=== PATIENT | female | born 1990 | race Caucasian/White ===

== ENCOUNTER → 2020-11-09 07:49 | Outpatient (CLI) | payer OTHER, SELFPAY ==
--- NOTE | ~2020-11-09 | XR_ITS ---
XR chest 2V DATE: 11/09/2020 08:37 INDICATION: Chest pain TECHNIQUE: PA and lateral views COMPARISON: None FINDINGS: Normal heart size. No hilar or mediastinal enlargement. No pulmonary infiltrate or consolid ation, pleural effusion or pulmonary vascular congestion or pneumothorax. IMPRESSION: Negative Reviewed, dictated and finalized at location A. IMPRESSION: Negative
== END ==
PROVIDERS: PCP Emergency Medicine; Visit Provider Emergency Medicine
DX: R07.89 Other chest pain (principal)
CPT/HCPCS: 71046

== ENCOUNTER 2020-11-15 14:28 | Outpatient (CLI) | payer OTHER, SELFPAY ==
--- NOTE | 2020-11-15 | ECHO_ITS ---
Patient Info Name: Niya Hooper Age: 30 years : 1990 Gender: Female Ht: 61 in Wt: 140 lbs BSA: 1.67 m2 HR: 62 bpm BP: 134 / 73 mmHg Heart Rhythm: Sinus Rhythm Technical Quality: Good Exam Date: 11/15/2020 3:13 PM Exam Location: [facility] Patient Status: Outpatient Admit Date: 11/15/2020 Staff Ordering Physician: Zachariah Ordonez MD Vocational Guidance Counselor: Yuliya Goss RDCS Attending Provider: Zachariah Ordonez MD Referring Physician: José Luis GUY; Exam Type: CA echo doppler color flow Study Info Indications - MURMUR Complete two-dimensional, color flow and Doppler transthoracic echocardiogram is performed. Summary 1. Complete two-dimensional, color flow and Doppler transthoracic echocardiogram is performed. 2. Left ventricular chamber dimension is normal. 3. Left ventricular systolic function is normal, estimated at 55-60%. 4. There is no increased left ventricular wall thickness. 5. The left ventricular diastolic function is normal. 6. There is mild mitral valve regurgitation. 7. There is mild tricuspid valve regurgitation. 8. There is mild pulmonic regurgitation. Left Ventricle Left ventricular chamber dimension is normal. Left ventricular systolic function is normal, estimated at 55-60%. There is no increased left ventricular wall thickness. The left ventricular diastolic function is normal. Right Ventricle Right ventricular chamber dimension is normal. Right ventricular systolic function is normal. Left Atria Left atrial chamber dimension is normal. Right Atria Right atrial chamber dimension is normal. Atrial Septum Intact interatrial septum visualized by color flow imaging. Aortic Valve The aortic valve is trileaflet. There is mild aortic valve sclerosis. There is no aortic valve stenosis. There is trace aortic valve regurgitation. Pulmonic Valve The pulmonic valve is normal. There is no pulmonic valve stenosis. There is mild pulmonic regurgitation. Mitral Valve The mitral valve has normal leaflets. There is no mitral valve stenosis. There is mild mitral valve regurgitation. Tricuspid Valve The tricuspid valve leaflets are normal. There is no significant tricuspid valve stenosis. There is mild tricuspid valve regurgitation. No pulmonary hypertension, estimated pulmonary arterial systolic pressure is 29 mmHg. Pericardium/Pleural The pericardium appears normal. There is no pericardial effusion. Inferior Vena Cava Normal inferior vena cava with >50% collapse upon inspiration consistent with normal right atrial pressure, 10 mmHg. Aorta The aortic root size at the sinus of Valsalva is normal. The prox ascending aorta size is normal. Left Ventricular Outflow Tract Name Value Normal LVOT 2D LVOT Diameter 2.0 cm LVOT Doppler LVOT Peak Gradient 6 mmHg LVOT Mean Gradient 4 mmHg LVOT VTI 26 cm LVOT VTI/AV VTI Ratio 0.8 LVOT Stroke Volume 80 ml LVOT CO 16.7 l
== END 2020-11-15 14:29 | disposition home or self-care (01) ==
LOC: ANHCARD 14:30
PROVIDERS: PCP Emergency Medicine; Visit Provider Emergency Medicine
DX: R01.1 Cardiac murmur, unspecified (principal); I34.0 Nonrheumatic mitral (valve) insufficiency; I36.1 Nonrheumatic tricuspid (valve) insufficiency; I37.1 Nonrheumatic pulmonary valve insufficiency
CPT/HCPCS: 93306

== ENCOUNTER 2021-03-01 02:41 | Emergency (ER) | payer OTHER, SELFPAY ==
[2021-03-01 02:46] VITALS: BP 156/106; PULSE 74; RESP 18; TEMP 36.6; O2SAT 99
--- NOTE | 2021-03-01 02:52 | ED.WOUNDLAC ---
HPI - Wound/Laceration General Chief Complaint: Wound/Laceration Stated Complaint: fell, laceration to head Time Seen by Provider: 03/01/21 02:52 History of Present Illness HPI narrative: healthy 30 yo female presnets to the ED for a laceration. She reports that she fell forward and struck her head. She suffered a laceration to the left forehead. No LOC. Pain is minimal. No other pain or injury. Related Data Allergies Allergy/AdvReac Type Severity Reaction Status Date / Time No Known Allergies Allergy Verified 03/01/21 03:10 Review of Systems Constitutional: Constitutional: Denies weakness Eyes: Eyes: Reports no additional eye complaints ENT: Denies dizziness Cardiovascular: Cardiovascular: Denies chest pain Respiratory: Respiratory: Denies dyspnea Gastrointestinal: Gastrointestinal: Denies nausea Neurologic: Denies confusion, Denies dizziness, Denies headache(s) and Denies weakness [facility] Social History Social History Smoking status: Never smoker Exam Const: General: healthy appearing, no acute distress and alert Orientation/consciousness: patient oriented x3 HENMT: Head: laceration (forehead, 4 cm) Eyes: Pupils: Equal, round and reactive pupils present EOM: EOMs intact bilaterally Resp: Effort & Inspection: normal respiratory effort Skin: General skin exam: normal color Neuro: General: patient oriented x3 and moves all extremities Speech: normal speech Psych: Appearance: grossly normal and well kempt Mental Status: mental status grossly normal Affect: normal affect Course Vital Signs Vital signs: Vital Signs Temperature 36.6 C 03/01/21 02:46 Pulse Rate 74 03/01/21 02:46 Respiratory Rate 18 03/01/21 02:46 Blood Pressure 156/106 H 03/01/21 02:46 Pulse Oximetry 99 03/01/21 02:46 Temperature 36.6 C 03/01/21 02:46 Pulse Rate 74 03/01/21 02:46 Respiratory Rate 18 03/01/21 02:46 Blood Pressure 156/106 H 03/01/21 02:46 Pulse Oximetry 99 03/01/21 02:46 Procedures Laceration Laceration 1: Date: 03/01/21 Time: 03:45 Site: face Size (cm): 4 Description: linear Depth: simple, single layer Local Anesthetic: lidocaine 1% and with epi Amount of anesthesia used (mL): 3 Pre-repair: wound explored and irrigated ====== Skin Level ====== Skin layer closed with: other (Fast Gut) Size (cm): 5-0 Number of sutures: 7 Technique: simple, interrupted ====== Subcutaneous Layer ====== ====== Muscle Layer ====== ====== Tendon Layer ====== MDM - Wound/Laceration Differential Diagnosis Differential diagnosis: Likely laceration Discharge Plan Discharge Clinical Impression: Forehead laceration Qualifiers: Encounter type: initial encounter Qualified Code(s): S01.81XA - Laceration without foreign body of other part of head, initial encounter Patient Disposition: Home, Self-Care Condition: Stable Instructions: Laceration (ED), Care For Your Absorbable Stitches (ED) Follow-up/Referrals: Zachariah Ordonez MD [Primary Care Provider] -
[2021-03-01 04:11] VITALS: BP 137/87; PULSE 68; RESP 20; O2SAT 100
== END 2021-03-01 04:12 | disposition home or self-care (01) ==
LOC: ANHED 04:00
PROVIDERS: Emergency Provider Emergency Medicine; PCP Emergency Medicine
DX: S01.81XA Laceration without foreign body of other part of head, initial encounter (principal); W19.XXXA Unspecified fall, initial encounter
CPT/HCPCS: 12013; 99282

== ENCOUNTER → 2022-12-17 11:20 | Outpatient (CLI) | payer OTHER, SELFPAY ==
--- NOTE | ~2022-12-17 | US_ITS ---
EXAMINATION: US OB <= 14 weeks fetus DATE: 12/17/2022 11:38 INDICATION: Uncertain dating of a first trimester TECHNIQUE: Real-time pelvic ultrasound utilizing transabdominal probe was performed. The susie lopez radiologist was not present for the study. COMPARISON: None. FINDINGS: The uterus measures 9.6 x 5.1 x 5.1 cm. There is an intrauterine gestational sac. A 5 mm yolk sac an d pole are identified. The crown rump length measures 8 mm, which correlates with an estimated gestational age of 6 weeks and 5 days. heart motion is identified measuring 147 beats per minut e (bpm) by M-mode Doppler. The right ovary measures 2.9 x 2.7 x 2.2 cm. The left ovary measures 2.5 x 2.3 x 2.0 cm. There is no free fluid in the pelvis. IMPRESSION: 1. Single living fetus with heart rate of 147 bpm. 2. Gestational age by ultrasound of 6 weeks 5 day(s) +/- 4 day(s) with ultrasound estimated date of delivery (ASHWIN) of 08/07/2023. Reviewed, dictated and finalized at location B. IMPRESSION: 1. Single living fetus with heart rate of 147 bpm. 2. Gestational age by ultrasound of 6 weeks 5 day(s) +/- 4 day(s) with ultraso und estimated date of delivery (ASHWIN) of 08/07/2023.
== END ==
PROVIDERS: PCP Obstetrics & Gynecology Gynecology; Visit Provider Obstetrics & Gynecology Gynecology
DX: Z36.87 Encounter for antenatal screening for uncertain dates (principal); Z3A.01 Less than 8 weeks gestation of pregnancy
CPT/HCPCS: 76801

== ENCOUNTER → 2023-03-07 09:39 | Outpatient (CLI) | payer OTHER, SELFPAY ==
--- NOTE | ~2023-03-07 | US_ITS ---
EXAMINATION: US OB /maternal detail DATE: 03/07/2023 10:31 INDICATION: survey TECHNIQUE: Multiple obstetric sonographic images performed. FINDINGS: Ultrasound dated 12/17/2022 There is a single living fetus in vertex presentation. The placenta is posterior without placenta pr evia. Placental margin is 5 cm to the cervix. Amniotic fluid volume is normal. cardiac activity and movement is noted with a heart rate of 141 beats per minute. The following anatomy was identified as normal: 4 chamber heart 3 vessel cord cord insertion kidneys urinary bladder stomach spine diaphragm ventricles cisterna magna cerebellum The following biometric data were obtained: BPD: 44mm corresponds to gestational age 19 weeks 1 days. Head circumference: 159 mm corresponds to gestational age 18 weeks 5 days. Abdominal circumference: 131 mm corresponds to gestational age 18 weeks 5 days. Femur length: 26 mm corresponds to gestational age 17 weeks 6 days. Head circumference to abdominal circumference ratio: 1.21 (normal range for expected gestational age is 1.09-1.27). Estimated weight: 235 grams +/- 35 grams using Hadlock method, 57%. IMPRESSION: 1: Single living intrauterine with an estimated gestational age of 18weeks 1days by initial ultrasound measurements, with an EDC of 08/07/2023 in vertex presentation. 2. Normal survey. Reviewed, dictated and finalized at location A. IMPRESSION: 1: Single living intrauterine with an estimated gestational age of 18 weeks 1days by initial ultrasound measurements, with an EDC of 08/07/2023 in ve rtex presentation. 2. Normal survey.
== END ==
PROVIDERS: PCP Obstetrics & Gynecology Gynecology; Visit Provider Obstetrics & Gynecology Gynecology
DX: Z36.9 Encounter for antenatal screening, unspecified (principal); Z3A.18 18 weeks gestation of pregnancy
CPT/HCPCS: 76805

== ENCOUNTER → 2023-05-29 11:24 | Outpatient (CLI) | payer OTHER, SELFPAY ==
--- NOTE | ~2023-05-29 | US_ITS ---
EXAMINATION: US OB follow up DATE: 05/29/2023 11:49 INDICATION: Size less than dates during third trimester TECHNIQUE: Real-time ultrasound of the pelvis was performed. The interpreting radiologist was not pre sent for the study. COMPARISON: None. FINDINGS: There is a single living fetus in vertex presentation. The placenta is fundal/posterior. Fe baljit cardiac activity and movement are noted. heart rate is 133 beats per minute (bpm). Th e amniotic fluid index is 13.8 cm which is normal (normal range: 9 cm to 23.4 cm). The following biometric data were obtained: Biparietal diameter (BPD): 7.7 cm; head circumference (HC): 27.8 cm; abdominal circumference (AC): 26 .2 cm; femur length (FL): 5.5 cm. These measurements are concordant. Estimated weight is 1482 g +/- 222 g, which correlates with the 35th percentile when 08/07/2023 is used as estimated date of delivery. As single measurements, these parameters are each equal to the following estimated gestational ages w ith ranges of +/- 2 standard deviations: BPD: 30 weeks 6 days ( 27 weeks 6 days - 34 weeks 0 days). HC: 30 weeks 3 days ( 27 weeks 3 days - 33 weeks 3 days). AC: 30 weeks 2 days ( 27 weeks 3 days - 33 weeks 2 days). FL: 29 weeks 0 days ( 26 weeks 6 days - 31 weeks 0 days). estimated gestational age based solely on measurements from this exam is 30 weeks 1 days +/- 2 weeks 1 days. IMPRESSION: 1. Single living fetus in vertex presentation. 2. Estimated weight is 1482 g +/- 222 g, which correlates with the 35th percentile when 023 is used as estimated date of delivery. 3. Normal amniotic fluid index. Reviewed, dictated and finalized at location B. IMPRESSION: 1. Single living fetus in vertex presentation. 2. Estimated weight is 1482 g +/- 222 g, which correlates with the 35th p ercentile when 08/07/2023 is used as estimated date of delivery. 3. Normal amniotic fluid index.
== END ==
PROVIDERS: PCP Advanced Practice Midwife; Visit Provider Advanced Practice Midwife
DX: O36.5930 Maternal care for other known or suspected poor fetal growth, third trimester, not applicable or unspecified (principal)
CPT/HCPCS: 76816

== ENCOUNTER 2023-06-03 15:53 | Outpatient (CLI) | payer OTHER, SELFPAY ==
[2023-06-03] VITALS (10 sets, daily range): BP systolic 130–144; BP diastolic 63–81; PULSE 65–78
[2023-06-03 16:39] LABS: Basophils Percent Auto 0.2 % (0.2-1.2); Eosinophils Absolute Auto 0.1 K/mm3 (0-0.3); Hematocrit 34.6 % (37.0-47.0); Hemoglobin 11.2 g/dL (12.0-15.0); Immature Granulocyte Absolute 0.18 K/mm3 (0.00-0.031); Immature Granulocyte Percent A 1.3 % (0-0.5); Lymphocytes Absolute Auto 1.92 K/mm3 (0.9-3.2); Lymphocytes Percent Auto 14.4 % (18.3-44.2); Mean Corpuscular HGB Conc 32.4 g/dl (32-36); Mean Corpuscular Hemoglobin 28.1 pg (26-34); Mean Corpuscular Volume 86.7 fl (80-100); Mean Platelet Volume 10.7 fl (7.4-10.4); Monocytes Absolute Auto 0.8 K/mm3 (0.1-0.6); Monocytes Percent Auto 6.2 % (2.6-8.5); Neutrophils Absolute Auto 10.3 K/mm3 (1.3-6.7); Neutrophils Percent Auto 76.9 % (45.5-73.1); Platelet Count Result 265 k/mm3 (150-375); Red Blood Count 3.99 M/mm3 (4.2-5.4); White Blood Count 13.4 K/mm3 (4.5-10.0)
[2023-06-03 16:40] LABS: Bacteria Urine 1+ /hpf; RBC Urine 0-2 /hpf (0-2); Squamous Epithelial Cell Urine Occasional /hpf (Few); WBC Urine 21-50 /hpf (0-3)
[2023-06-03 16:45] LABS: Alanine Aminotransferase 15 U/L (6-35); Albumin Level 3.9 g/dL (3.5-5.1); Alkaline Phosphatase 89 U/L (38-126); Anion Gap 7 mmol/L (8-16); Aspartate Amino Transferase 21 U/L (14-36); Bilirubin,Total 0.4 mg/dL (0.2-1.3); Blood Urea Nitrogen 8 mg/dL (7-17); Calcium 9.4 mg/dL (8.4-10.2); Carbon Dioxide 23 mmol/L (22-30); Chloride 104 mmol/L (98-107); Estimated Glomerular Filt Rate > 60; Glucose 86 mg/dL (65-110); Potassium 3.8 mmol/L (3.4-5.0); Sodium 134 mmol/L (137-145); Uric Acid 3.4 mg/dL (2.5-7.5)
[2023-06-03 16:47] LABS: Appearance Urine Clear (Clear); Bilirubin Urine Negative (Negative); Blood Urine Negative (Negative); Color Urine Yellow (Yellow); Glucose Urine UA Negative (Negative); Ketones Urine 1+ mg/dL (Negative); Leukocyte Esterase Ur 2+ LEU/UL (NEGATIVE); Nitrate Urine Negative (Negative); Protein Urine Negative (Negative); Specific Grav Ur 1.015 (1.001-1.035); Urobilinogen Urine 0.2 mg/dL (<2.0)
[2023-06-03 16:48] LABS: Add Urine Microscopic? YES
[2023-06-03 17:59] LABS: Creatinine Urine 34.2 mg/dL; Total Protein Urine Random 18 mg/dL; Ur Ttl Prot Creatinine Ratio 0.53 mg/mg (0-0.20)
== END 2023-06-03 18:04 | disposition home or self-care (01) ==
LOC: ANHOBOP 15:58 → ANHOBPP 16:00
PROVIDERS: PCP Advanced Practice Midwife; Visit Provider Obstetrics & Gynecology Gynecology
DX: O13.9 Gestational [pregnancy-induced] hypertension without significant proteinuria, unspecified trimester (principal)
CPT/HCPCS: 36415; 59025; 80053; 81001; 81050; 82570; 84156; 84550; 85025; 87086; 99199

== ENCOUNTER 2023-06-04 18:04 | Outpatient (CLI) | payer OTHER, SELFPAY ==
[2023-06-04 18:21] VITALS: BMI 30.4
[2023-06-04 20:11] LABS: Total Volume 24 Hour Urine 2900 ml
[2023-06-04 20:18] LABS: Specific Gravity Ur 1.015; Total Volume 24 Hour Urine 2900 ml
[2023-06-04 20:23] LABS: Total Protein Urine 24 Hr 464 mg/24hr (28-141); Total Protein Urine Random 16 mg/dL
[2023-06-04 20:24] LABS: Creatinine 24 Hour Urine 1.4 gm/24 (0.8-1.8); Creatinine Urine 49.7 mg/dL
== END 2023-06-04 18:05 | disposition home or self-care (01) ==
LOC: ANHOBOP 18:16
PROVIDERS: PCP Advanced Practice Midwife; Visit Provider Obstetrics & Gynecology Gynecology
DX: Z34.90 Encounter for supervision of normal pregnancy, unspecified, unspecified trimester (principal); Z3A.00 Weeks of gestation of pregnancy not specified
CPT/HCPCS: 81050; 82570; 84156

== ENCOUNTER 2023-06-11 10:31 | Outpatient (RCR) | payer OTHER, SELFPAY ==
[2023-06-11 11:09] VITALS: BP 127/74; PULSE 76
== END 2023-09-09 23:59 | disposition home or self-care (01) ==
LOC: ANHOBOP 10:31
PROVIDERS: PCP Emergency Medicine; Visit Provider Obstetrics & Gynecology Gynecology
DX: O16.3 Unspecified maternal hypertension, third trimester (principal); Z3A.31 31 weeks gestation of pregnancy
CPT/HCPCS: 59025

== ENCOUNTER 2023-06-15 16:25 | Outpatient (CLI) | payer OTHER, SELFPAY ==
[2023-06-15 17:23] LABS: Basophils Percent Auto 0.2 % (0.2-1.2); Eosinophils Absolute Auto 0.1 K/mm3 (0-0.3); Eosinophils Percent Auto 0.9 % (0-4.4); Hematocrit 35.9 % (37.0-47.0); Hemoglobin 11.3 g/dL (12.0-15.0); Immature Granulocyte Absolute 0.11 K/mm3 (0.00-0.031); Immature Granulocyte Percent A 0.8 % (0-0.5); Lymphocytes Absolute Auto 1.97 K/mm3 (0.9-3.2); Lymphocytes Percent Auto 14.7 % (18.3-44.2); Mean Corpuscular HGB Conc 31.5 g/dl (32-36); Mean Corpuscular Hemoglobin 27.9 pg (26-34); Mean Corpuscular Volume 88.6 fl (80-100); Monocytes Absolute Auto 0.8 K/mm3 (0.1-0.6); Monocytes Percent Auto 6.3 % (2.6-8.5); Neutrophils Absolute Auto 10.3 K/mm3 (1.3-6.7); Neutrophils Percent Auto 77.1 % (45.5-73.1); Platelet Count Result 244 k/mm3 (150-375); Red Blood Count 4.05 M/mm3 (4.2-5.4); Red Cell Distribution Width 12.9 % (11.5-14.5); White Blood Count 13.4 K/mm3 (4.5-10.0)
[2023-06-15 17:27] LABS: Appearance Urine Cloudy (Clear); Bacteria Urine None Seen /hpf; Bilirubin Urine Negative (Negative); Blood Urine Negative (Negative); Color Urine Yellow (Yellow); Glucose Urine UA Negative (Negative); Ketones Urine Negative (Negative); Leukocyte Esterase Ur Negative LEU/UL (NEGATIVE); Nitrate Urine Negative (Negative); Non Pathogenic Casts 0-2; Protein Urine Negative (Negative); RBC Urine 0-2 /hpf (0-2); Specific Grav Ur 1.017 (1.001-1.035); Squamous Epithelial Cell Urine None seen /hpf (Few); Urobilinogen Urine 0.2 mg/dL (<2.0); WBC Urine 0-5 /hpf (0-3); pH Urine 7.5 (5.0-9.0)
[2023-06-15 17:33] LABS: Alanine Aminotransferase 14 U/L (6-35); Albumin Level 3.6 g/dL (3.5-5.1); Alkaline Phosphatase 94 U/L (38-126); Anion Gap 7 mmol/L (8-16); Aspartate Amino Transferase 19 U/L (14-36); Bilirubin,Total 0.3 mg/dL (0.2-1.3); Blood Urea Nitrogen 8 mg/dL (7-17); Calcium 8.8 mg/dL (8.4-10.2); Carbon Dioxide 18 mmol/L (22-30); Chloride 108 mmol/L (98-107); Estimated Glomerular Filt Rate > 60; Glucose 89 mg/dL (65-110); Potassium 3.8 mmol/L (3.4-5.0); Sodium 133 mmol/L (137-145)
[2023-06-15 17:46] LABS: Add Urine Microscopic? YES
[2023-06-15 18:10] VITALS: BP 134/80; PULSE 82
[2023-06-15 19:04] LABS: Creatinine Urine 75.1 mg/dL; Total Protein Urine Random 10 mg/dL; Ur Ttl Prot Creatinine Ratio 0.13 mg/mg (0-0.20)
--- NOTE | 2023-06-15 19:15 | PC.NURSE ---
Dr. France notified of pt status, instructed to send pt home, instructed to tell pt she does not need to return for NST tomorrow since she got one today.
== END 2023-06-15 19:28 | disposition home or self-care (01) ==
PROVIDERS: Visit Provider Obstetrics & Gynecology Gynecology
DX: O13.9 Gestational [pregnancy-induced] hypertension without significant proteinuria, unspecified trimester (principal); Z3A.00 Weeks of gestation of pregnancy not specified
CPT/HCPCS: 36415; 59025; 80053; 81001; 82570; 84156; 84550; 85025; 87086; 87088

== ENCOUNTER → 2023-06-17 10:17 | Outpatient (CLI) | payer OTHER, SELFPAY ==
--- NOTE | ~2023-06-17 | US_ITS ---
EXAMINATION: US OB follow up, US umbilical doppler DATE: 06/17/2023 11:18 INDICATION: Preeclampsia TECHNIQUE: Real-time ultrasound of the pelvis was performed. The interpreting radiologist was not pre sent for the study. COMPARISON: None. FINDINGS: There is a single living fetus in vertex presentation. The placenta is posterior fundal. heart rate is 145 beats per minute (bpm). The amniotic fluid index is 12.9 cm, which is normal. The following biometric data were obtained: BPD: 8.1 cm -> 32 weeks 2 days Head circumference: 29.0 cm -> 32 weeks 0 days Abdominal circumference: 28.7 cm -> 32 weeks 5 days Femur length: 5.8 cm -> 30 weeks 4 days These measurements are concordant. Head circumference to abdominal circumference ratio: 1.01 (normal range 0.96-1.14). Estimated weight: 1872 g (+/-) 281 g or 4 lbs. 2 oz. (+/-) 10 oz. The umbilical artery demonstrates a peak systolic and diastolic velocity ratio of 2.9 at the fetus, 2 .4 in the mid cord and 2.4 near the placenta (5th%-95%: 2.2-3.8 at 32 weeks). IMPRESSION: 1. Single living fetus in vertex presentation with heart rate of 145 bpm. 2. Normal amniotic fluid index of 12.9 cm 3. Estimated weight is 20th percentile by Hadlock criteria when 08/07/2023 is used as the estim ated date of delivery (ASHWIN). Please correlate with clinical information or earlier ultrasounds for mo st accurate ASHWIN. 4. Normal umbilical arterial systolic to diastolic ratios of 2.4-2.9. Reviewed, dictated and finalized at location A. IMPRESSION: 1. Single living fetus in vertex presentation with heart rate of 145 bpm. 2. Normal amniotic fluid index of 12.9 cm 3. Estimated weight is 20th percentile by Hadlock criteria when 3 is used as the estimated date of delivery (ASHWIN). Please correlate with clinic al information or earlier ultrasounds for most accurate ASHWIN. 4. Normal umbilical arterial systolic to diastolic ratios of 2.4-2.9.
== END ==
PROVIDERS: PCP Advanced Practice Midwife; Visit Provider Advanced Practice Midwife
DX: O14.03 Mild to moderate pre-eclampsia, third trimester (principal); Z3A.00 Weeks of gestation of pregnancy not specified
CPT/HCPCS: 76816; 76820

== ENCOUNTER 2023-06-29 12:10 | Outpatient (CLI) | payer OTHER, SELFPAY ==
[2023-06-29] VITALS (10 sets, daily range): BP systolic 128–145; BP diastolic 63–92; PULSE 66–90
--- NOTE | ~2023-06-29 | US_ITS ---
EXAMINATION: 1. US OB follow up 2. US umbilical doppler DATE: 06/29/2023 14:49 INDICATION: Preeclampsia. Third trimester. TECHNIQUE: Real-time ultrasound of the pelvis was performed. COMPARISON: Ultrasound 06/17/2023 FINDINGS: There is a single living fetus in vertex presentation. The placenta is fundal and posterior. h eart rate is 128 beats per minute (bpm). The amniotic fluid index is 12.2 cm, which is normal. The following biometric data were obtained: Biparietal diameter (BPD): 8.4 cm; head circumference (HC): 30.3 cm; abdominal circumference (AC): 30 .5 cm; femur length (FL): 6.4 cm. These measurements are concordant. Estimated weight is 2314 g +/- 347 g, which correlates with the 31st percentile when 08/07/23 i s used as estimated date of delivery. As single measurements, these parameters are each equal to the following estimated gestational ages: BPD: 33 weeks 6 days. HC: 33 weeks 4 days. AC: 34 weeks 3 days. FL: 33 weeks 1 days. estimated gestational age based solely on measurements from this exam is 33 weeks 5 days +/- 2 weeks 3 days. Umbilical artery pulsed Doppler demonstrates a peak systolic to end-diastolic velocity ratio (S/D rat io) of 2.4 (5th percentile = 2.07, 95th percentile = 3.53). IMPRESSION: 1. Single living fetus in vertex presentation. 2. Estimated weight is 2314 g +/- 347 g, which correlates with the 31st percentile when is used as estimated date of delivery. 3. Normal umbilical artery Doppler. Reviewed, dictated and finalized at location A. WORKER IMPRESSION: 1. Single living fetus in vertex presentation. 2. Estimated weight is 2314 g +/- 347 g, which correlates with the 31st percentile when 08/07/23 is used as estimated date of delivery. 3. Normal umbilical artery Doppler.
[2023-06-29 12:49] LABS: Basophils Percent Auto 0.2 % (0.2-1.2); Eosinophils Absolute Auto 0.1 K/mm3 (0-0.3); Eosinophils Percent Auto 0.5 % (0-4.4); Hematocrit 37.1 % (37.0-47.0); Hemoglobin 11.7 g/dL (12.0-15.0); Immature Granulocyte Absolute 0.09 K/mm3 (0.00-0.031); Immature Granulocyte Percent A 0.8 % (0-0.5); Lymphocytes Percent Auto 11.1 % (18.3-44.2); Mean Corpuscular HGB Conc 31.5 g/dl (32-36); Mean Corpuscular Hemoglobin 27.9 pg (26-34); Mean Corpuscular Volume 88.3 fl (80-100); Mean Platelet Volume 11.1 fl (7.4-10.4); Monocytes Absolute Auto 0.6 K/mm3 (0.1-0.6); Monocytes Percent Auto 4.8 % (2.6-8.5); Neutrophils Absolute Auto 9.7 K/mm3 (1.3-6.7); Neutrophils Percent Auto 82.6 % (45.5-73.1); Platelet Count Result 233 k/mm3 (150-375); Red Cell Distribution Width 13.3 % (11.5-14.5); White Blood Count 11.7 K/mm3 (4.5-10.0)
[2023-06-29 13:00] LABS: Alanine Aminotransferase 15 U/L (6-35); Albumin Level 3.8 g/dL (3.5-5.1); Alkaline Phosphatase 105 U/L (38-126); Anion Gap 12 mmol/L (8-16); Aspartate Amino Transferase 19 U/L (14-36); Bilirubin,Total 0.4 mg/dL (0.2-1.3); Blood Urea Nitrogen 10 mg/dL (7-17); Calcium 9.8 mg/dL (8.4-10.2); Carbon Dioxide 22 mmol/L (22-30); Chloride 101 mmol/L (98-107); Estimated Glomerular Filt Rate > 60; Glucose 118 mg/dL (65-110); Potassium 4.1 mmol/L (3.4-5.0); Sodium 135 mmol/L (137-145); Uric Acid 4.2 mg/dL (2.5-7.5)
--- NOTE | 2023-06-29 15:10 | PC.NURSE ---
1510: MATHIEU Garcia responded to page. RN informed her of patient's lab results, blood pressures, ultrasound report, reactive NST, and rare contraction. Orders to discharge patient home with instructions on when to return to the hospital.
== END 2023-06-29 15:23 | disposition home or self-care (01) ==
LOC: ANHOBOP 12:17 → ANHOBPP 12:18
PROVIDERS: Visit Provider Advanced Practice Midwife
DX: O13.9 Gestational [pregnancy-induced] hypertension without significant proteinuria, unspecified trimester (principal); Z3A.00 Weeks of gestation of pregnancy not specified
CPT/HCPCS: 36415; 59025; 76816; 76820; 80053; 84550; 85025; 99199

== ENCOUNTER 2023-07-13 13:05 | Inpatient (IN) | payer OTHER, SELFPAY ==
[2023-07-13] VITALS (49 sets, daily range): BP systolic 133–170; BP diastolic 63–103; PULSE 64–99; TEMP 36.3–36.4; O2SAT 94–97; BMI 30.7
[2023-07-13 14:05] LABS: Basophils Percent Auto 0.2 % (0.2-1.2); Eosinophils Absolute Auto 0.1 K/mm3 (0-0.3); Eosinophils Percent Auto 0.4 % (0-4.4); Hematocrit 33.9 % (37.0-47.0); Hemoglobin 11.1 g/dL (12.0-15.0); Immature Granulocyte Absolute 0.07 K/mm3 (0.00-0.031); Immature Granulocyte Percent A 0.6 % (0-0.5); Lymphocytes Absolute Auto 1.51 K/mm3 (0.9-3.2); Lymphocytes Percent Auto 12.5 % (18.3-44.2); Mean Corpuscular HGB Conc 32.7 g/dl (32-36); Mean Corpuscular Hemoglobin 28.6 pg (26-34); Mean Corpuscular Volume 87.4 fl (80-100); Mean Platelet Volume 11.1 fl (7.4-10.4); Monocytes Absolute Auto 0.6 K/mm3 (0.1-0.6); Monocytes Percent Auto 4.5 % (2.6-8.5); Neutrophils Absolute Auto 9.9 K/mm3 (1.3-6.7); Neutrophils Percent Auto 81.8 % (45.5-73.1); Platelet Count Result 264 k/mm3 (150-375); Red Blood Count 3.88 M/mm3 (4.2-5.4); Red Cell Distribution Width 13.5 % (11.5-14.5); White Blood Count 12.1 K/mm3 (4.5-10.0)
[2023-07-13 14:18] LABS: Alanine Aminotransferase 13 U/L (6-35); Albumin Level 3.4 g/dL (3.5-5.1); Alkaline Phosphatase 120 U/L (38-126); Anion Gap 6 mmol/L (8-16); Aspartate Amino Transferase 19 U/L (14-36); Bilirubin,Total 0.4 mg/dL (0.2-1.3); Blood Urea Nitrogen 8 mg/dL (7-17); Calcium 9.3 mg/dL (8.4-10.2); Carbon Dioxide 23 mmol/L (22-30); Chloride 104 mmol/L (98-107); Estimated Glomerular Filt Rate > 60; Glucose 95 mg/dL (65-110); Potassium 4.1 mmol/L (3.4-5.0); Sodium 133 mmol/L (137-145); Uric Acid 4.5 mg/dL (2.5-7.5)
[2023-07-13] MEDS: BETAMETHASONE SOD PHOS/ACETATE 30 MG/5 ML VIAL 12 MG IM (14:20)
[2023-07-13] MEDS: LACTATED RINGERS 1,000 ML 125 ML IV CONT ×2 (14:25→22:25)
[2023-07-13] MEDS: OXYTOCIN 30 UNITS/NS 500 ML 30 UNITS/500 ML BAG IV CONT (14:26)
[2023-07-13 14:54] LABS: Rapid Plasma Reagin Non-Reactive (NonReactive)
--- NOTE | 2023-07-13 16:44 | WPDANESEPP ---
Anes - Eval Pre Procedure Procedure: Labor epidural Date/Time: 07/13/23 16:44 Pre Op Diagnosis: Induction of Labor Patient Data Age: 33 Gender: F Height: 1.56 m Weight: 75 kg Last Vital Signs Pulse 78 07/13/23 16:31 BP 147/83 H 07/13/23 16:31 O2 Del Method Room Air 07/13/23 14:16 Allergies Allergy/AdvReac Type Severity Reaction Status Date / Time No Known Allergies Allergy Verified 03/01/21 03:10 Home Medications Medication Instructions Recorded Confirmed Type aspirin 162 mg tablet,delayed 162 mg PO DAILY 07/13/23 07/13/23 History release ergocalciferol (vitamin D2) 1,250 50,000 unit WEEKLY 07/13/23 07/13/23 History mcg (50,000 unit) capsule vit no.95-ferrous 1 tablet PO DAILY 07/13/23 07/13/23 History fumarate 28 mg-folic acid 800 mcg tablet () Laboratory Tests 07/13/23 13:54 WBC 12.1 H K/mm3 (4.5-10.0) RBC 3.88 L M/mm3 (4.2-5.4) Hgb 11.1 L g/dL (12.0-15.0) Hct 33.9 L % (37.0-47.0) MCV 87.4 fl (80-100) MCH 28.6 pg (26-34) MCHC 32.7 g/dl (32-36) RDW 13.5 % (11.5-14.5) Plt Count 264 k/mm3 (150-375) MPV 11.1 H fl (7.4-10.4) Immature Gran % (Auto) 0.6 H % (0-0.5) Neut % (Auto) 81.8 H % (45.5-73.1) Lymph % (Auto) 12.5 L % (18.3-44.2) [place] % (Auto) 4.5 % (2.6-8.5) Eos % (Auto) 0.4 % (0-4.4) Baso % (Auto) 0.2 % (0.2-1.2) Lymph # (Auto) 1.51 K/mm3 (0.9-3.2) [place] # (Auto) 0.6 K/mm3 (0.1-0.6) Eos # (Auto) 0.1 K/mm3 (0-0.3) Baso # (Auto) 0.0 K/mm3 (0.0-0.1) Abs Immat Gran (auto) 0.07 H K/mm3 (0.00-0.031) Absolute Neuts (auto) 9.9 H K/mm3 (1.3-6.7) Absolute Nucleated RBC 0.0 K/mm3 (0.0-0.012) Nucleated RBC % 0.0 % (0.0-0.2) Sodium 133 L mmol/L (137-145) Potassium 4.1 mmol/L (3.4-5.0) Chloride 104 mmol/L (98-107) Carbon Dioxide 23 mmol/L (22-30) Anion Gap 6 L mmol/L (8-16) BUN 8 mg/dL (7-17) Creatinine 0.50 L mg/dL (0.7-1.0) Estim Creat Clear Calc Not Reportable Estimated GFR > 60 (59 - ) Glucose 95 mg/dL (65-110) Uric Acid 4.5 mg/dL (2.5-7.5) Calcium 9.3 mg/dL (8.4-10.2) Total Bilirubin 0.4 mg/dL (0.2-1.3) AST 19 U/L (14-36) ALT 13 U/L (6-35) Alkaline Phosphatase 120 U/L (38-126) Total Protein 6.0 L g/dL (6.3-8.2) Albumin 3.4 L g/dL (3.5-5.1) RPR Non-reactive (NonReactive) Blood Type A Positive Antibody Screen Negative Patient hx anesthesia problems: none Family hx anesthesia problems: none Results Review: All pre-operative results and documents have been reviewed as part of the pre-operative evaluation. REPLACED BY [facility] Past Medical History Medical History (Updated 07/13/23 @ 16:45 by Shannon Garcia CRNA) Anxiety Obese Pre-eclampsia during in third trimester, antepartum Family History Family History Grandparent Cancer Brain tumor Other No pertinent family history Social History Social History Smoking status: Current some day smoker Tobacco type: cigarettes Second hand tobacco smoke exposure: Yes Substance use: never Lack of Transportation: No Lack of Food: Never True Current Housing: I Have Housing Concerned About Future Housing: No Difficulty Paying Gas/Electric Bills: No Difficulty Paying for Meds: No Currently Unemployed: No Education: Trade/Vocational Certificate Difficulty w/ Childcare or Family Care: No Spiritual care concerns: No Exam Day of Procedure 07/13/23 16:44 Patient weight: obese Heart: regular rate and rhythm Lungs: clear to auscultation Airway: Mallampati scale Neurological: alert and oriented
--- NOTE | 2023-07-13 17:10 | WPDOBADMIT ---
Obstetrics - Admit Note Admission Note: record reviewed. No pertinent additions to the history and/or any subsequent changes in the physical findings that are not consistent with the expected course of the were found. Additions to the history and/or subsequent changes in the physical findings follow. Severe range blood pressures > 4 hours apart.
--- NOTE | 2023-07-13 18:40 | PM.OBPNLAB ---
Pain Control Date/time seen: 07/13/23 18:40 Pain control: tolerating well Pelvic Exam Dilation (cm): 2 (2.5 cm) Effacement (%): 80 station: -2 Amniotic membrane status: Intact Comments: head very well applied to cervix. Contractions Monitor mode: External Contraction frequency: 2 (2-3) Contraction duration: 60 Contraction pattern: Regular Contraction phase: Resting Contraction intensity: Moderate Status status: Category l Assessment and Plan Pitocin rate (mU/min): 8 Assessment: induction ongoing Plan: continuous present management Comments: CNM to bedside. Discussed plan of care an option for amniotomy. Discussed risks, benefits, and expectations of breaking water. Patient is agreeable. Amniotomy performed and there was a small return of clear amniotic fluid. Patient tolerated procedure well. Plan to titrate pitocin as needed to achieve adequate contraction pattern. Anticipate vaginal . Dr. France updated.
[2023-07-13] MEDS: CALCIUM CARBONATE (TUMS) 500 MG (200 MG ELEMENTAL) PO (22:49)
[2023-07-14] VITALS (54 sets, daily range): BP systolic 110–161; BP diastolic 60–108; PULSE 57–113; RESP 16–20; TEMP 36.6–36.9; O2SAT 95–100
[2023-07-14] MEDS: OXYTOCIN 30 UNITS/NS 500 ML 30 UNITS/500 ML BAG 125 UNITS IV CONT (01:00)
--- NOTE | 2023-07-14 01:01 | PM.OBPRVD ---
OB - Vaginal Delivery Note Procedure Delivery date: 07/14/23 Events: Preeclampsia w severe features (BP) Induction method: Per Pitocin Protocol Delivery augmentation: Rupture of Membranes Delivery monitor: External FHT and External Uterine Route of delivery: Episiotomy description: None Laceration Description: Vaginal (1st degree vaginal to left labial. ) Delivery repair: vicryl Specimen: Yes (placenta) Quantitative Blood Loss (ml): 75 Anesthesia type: Epidural Disposition: Floor Complications: No immediate complications Narrative: Pt arrived for IOL 2/2 preeclampsia with severe range BPs (x2) over the weekend. Pitocin was started and amniotomy performed. She progressed quickly to complete dilation. CNM to bedside and patient pushed very well with contractions. She quickly brought the head to a crown. With the next push she delivered the remainder of the head. A loose nuchal cord was identified. With the next expulsive effort the anterior and posterior shoulders were delivered followed by the remainder of the infant. The was delivered close to the perineum in the somersault maneuver. The nuchal cord was reduced and the was placed on the maternal abdomen and dried and cement of the cord was doubly clamped and cut. Cord blood, cord gases, and cord segment were obtained. Placenta delivered spontaneously. A first-degree vaginal and left labial continuous laceration repaired in usual fashion. There was excellent uterine tone and hemostasis. All delivery counts correct. Mother and baby skin to skin in the delivery room. [place] Baby Date of : 07/14/23 Time of : 00:29 Weeks of gestation at delivery: 36 gender: Female Weight (pounds): 0 (unavailable at this time.) presentation: vertex position: Right Occiput Anterior Placenta delivery description: Spontaneous and Normal Configuration Cord Vessel Description: 3 Vessels, Nuchal Cord and Delayed Cord Clamping score one minute: 9 score five minutes: 9
--- NOTE | 2023-07-14 01:14 | PM.OBDSVD ---
DS: Admitting Diagnosis Discharge Date 07/17/2023 Admitting Diagnosis 33 y.o. 36 weeks 3 days Preeclampsia with severe features IOL Anxiety ETOH use in first trimester Nicotine use in DS: Discharge Diagnosis Discharge Diagnosis (1) (normal spontaneous vaginal delivery): Code(s): O80 - Encounter for full-term uncomplicated delivery Status: Acute (2) Preeclampsia: Code(s): O14.90 - Unspecified pre-eclampsia, unspecified trimester Status: Acute OB - DS: Summary Hospital Course Hospital Course: Uncomplicated OB Procedures : NST, PIH Mgmt and Ultrasound OB Procedures Intrapartum: Spontaneous Vag Delivery OB Procedures: : None Peripartum Data Delivery Method: Natural Vaginal Laceration Description: Vaginal (1st degree vaginal to left labial. ) Episiotomy description: None complications: none Status at Discharge Functional status at discharge: independent ambulation Overall status at discharge: patient is progressing back to baseline Time Spent with Patient Time attestation: Total time spent providing and/or coordinating discharge services: DS: Data Data Completed and Pending Labs on day of discharge: Labs from last 24 hours 07/13/23 13:54 WBC 12.1 H RBC 3.88 L Hgb 11.1 L Hct 33.9 L MCV 87.4 MCH 28.6 MCHC 32.7 RDW 13.5 Plt Count 264 MPV 11.1 H Immature Gran % (Auto) 0.6 H Neut % (Auto) 81.8 H Lymph % (Auto) 12.5 L [place] % (Auto) 4.5 Eos % (Auto) 0.4 Baso % (Auto) 0.2 Lymph # (Auto) 1.51 [place] # (Auto) 0.6 Eos # (Auto) 0.1 Baso # (Auto) 0.0 Abs Immat Gran (auto) 0.07 H Absolute Neuts (auto) 9.9 H Absolute Nucleated RBC 0.0 Nucleated RBC % 0.0 Sodium 133 L Potassium 4.1 Chloride 104 Carbon Dioxide 23 Anion Gap 6 L BUN 8 Creatinine 0.50 L Estim Creat Clear Calc Not Reportable Estimated GFR > 60 Glucose 95 Uric Acid 4.5 Calcium 9.3 Total Bilirubin 0.4 AST 19 ALT 13 Alkaline Phosphatase 120 Total Protein 6.0 L Albumin 3.4 L RPR Non-reactive Blood Type A Positive Antibody Screen Negative Discharge Plan Discharge Attending physician on discharge: Maribel France Consulting providers: Trupti Salcedo; Shannon Garcia Discharging Clinician: Trupti Salcedo Patient Disposition: Home, Self-Care Activity: may shower Diet: as tolerated and regular Discharge Instructions: Continue taking your vitamin and any other supplements as previously directed (Examples: Iron, Vitamin D). You may take Tylenol 1000mg over the counter every 6 hours as needed for pain. Do not exceed 4000mg of Tylenol daily. You may continue using tucks pads and dermoplast spray if needed for a few more days. . Depression Notify provider for signs or symptoms. These may include- Feelings: Feeling anxious, angry, hopeless, guilt, or loss of interest/pleasure in activities you normally enjoy. Mood swings or panic attacks. General: Extreme fatigue, loss of your appetite, feeling restless. Crying excessively, irritability, insomnia Psychological: Lack of concentration, depression or fear, unwanted thoughts Weight: Significant gain or loss Safety: Thoughts of harming yourself or your baby. Blood Pressure Instructions Check your BP at home daily. Keep a log and bring to your next visit. Report any BP readings over 160/110 to provider immediately. (Please call if either number is elevated) Headache that does not improve with 2 Extra Strength Tylenol (you may take Ibuprofen if not ) Visual changes such as blurred vision or flashes of light Pain under the right breast Significant increase in swelling with any of the above symptoms *make sure you are sitting for at least 5 minutes before taking BP. Keep legs uncrossed and avoid talkin
--- NOTE | 2023-07-14 03:26 | OBPPTRN ---
Patient transferred to post room #292 via wheelchair. Support person present. Oriented to unit, room, information board, rooming in, admission packet and security measures. Patient verbalizes understanding.
[2023-07-14] MEDS: MULTIVIT/MIN/PREN/FOL AC/IRON TABLET 1 TAB PO (08:43)
[2023-07-14] MEDS: ERGOCALCIFEROL 50,000 UNITS CAPSULE 50000 UNITS BY MOUTH (08:43)
[2023-07-14] MEDS: IBUPROFEN 600 MG TABLET PO ×2 (08:44→15:52)
[2023-07-14] MEDS: DOCUSATE SODIUM 100 MG CAPSULE PO (15:53)
[2023-07-14] MEDS: LABETALOL HCL 100 MG TABLET PO (20:24)
[2023-07-15] VITALS (8 sets, daily range): BP systolic 138–157; BP diastolic 61–91; PULSE 62–84; RESP 16–20; TEMP 36.5–36.9; O2SAT 96–99
[2023-07-15 05:09] LABS: Hematocrit 31.2 % (37.0-47.0); Hemoglobin 9.7 g/dL (12.0-15.0)
--- NOTE | 2023-07-15 07:01 | P.PNOB_ITS ---
OB - PN: Subj Subjective Date/time seen: 07/15/23 07:01 Interval history: Had some severe BPs overnight. Dr. France was contacted and Labetalol was started. Doing well. Urinating without difficulty. Denies passing any large clots. Denies dizziness with ambulating. Tolerating po food and fluids. Bonding with infant. Denies MEJIA, visual changes, RUQ pain. Patient comments: pain well controlled baby status: doing well and bottle feeding well feeding status: exclusively bottle feeding OB - PN: Obj Data Labs 07/15/23 04:11 07/13/23 13:54 Labs: Laboratory Results - last 24 hr 07/15/23 04:11 Hgb 9.7 L Hct 31.2 L OB - PN A/P Plan day: 1 Plan: routine care Time Spent With Patient Time: Total time spent is greater than 50% in coordination of care (as documented) at patient's floor/unit and/or counseling patient: Review of Systems Review of Systems: All systems reviewed & are unremarkable except as noted in HPI and below Exam Narrative: Alert and oriented. Mood is pleasant and cooperative. Perineum with minimal edema. Fundus firm and below umbilicus. Const: General: cooperative, healthy appearing, no acute distress and alert Orientation/consciousness: patient oriented x3 Limitations: no limitations Resp: Effort & Inspection: normal respiratory effort and able to speak in complete sentences Auscultation: clear to auscultation bilaterally Cardio: Rate: regular rate GI: Inspection: normal to inspection Auscultation: normal bowel sounds : General: Yes bladder normal to palpation Bimanual exam- vagina & ut erus: bladder normal to palpation OB/external & speculum: vaginal bleeding Other: Fundus firm and below U Skin: General skin exam: normal color and no rashes or lesions noted Neuro: General: patient oriented x3 and moves all extremities Cognition (Neuro): normal cognition Extrem: General: normal to inspection and no calf tenderness Right lower extremity: edema Details: pitting and 1+ Left lower extremity: edema Details: pitting and 1+ Psych: Appearance: grossly normal Mental Status: mental status grossly normal Affect: normal affect Thought process: Normal thought process present
[2023-07-15] MEDS: POLYSACCHARIDE IRON COMPLEX 150 MG CAPSULE PO ×2 (08:45→19:50)
[2023-07-15] MEDS: LABETALOL HCL 100 MG TABLET PO ×2 (08:45→19:52)
[2023-07-15] MEDS: IBUPROFEN 600 MG TABLET PO ×2 (08:46→19:51)
[2023-07-15] MEDS: MULTIVIT/MIN/PREN/FOL AC/IRON TABLET 1 TAB PO (08:46)
[2023-07-15] MEDS: DOCUSATE SODIUM 100 MG CAPSULE PO ×2 (08:46→19:51)
--- NOTE | 2023-07-16 08:13 | P.PNOB_ITS ---
OB - PN: Subj Subjective Date/time seen: 07/16/23 08:00 Interval history: Reports RUQ pain overnight- constant, achy. Difficult to lay on that side . MEJIA last night but not at this time. No visual changes. Urinating without difficulty. Denies passing any large clots. Denies dizziness with ambulating. Tolerating po food and fluids. Bonding with . Patient comments: other [place] baby status: bottle feeding well [place] feeding status: exclusively bottle feeding OB - PN: Obj Data Labs 07/15/23 04:11 07/13/23 13:54 OB - PN A/P Assessment and Plan (1) RUQ pain: Code(s): R10.11 - Right upper quadrant pain Status: Acute Assessment and Plan: plan STAT CBC, CMP (2) Preeclampsia: Qualifiers: Trimester: third trimester Qualified Code(s): O14.93 - Unspecified pre- eclampsia, third trimester Code(s): O14.90 - Unspecified pre-eclampsia, unspecified trimester Status: Acute Assessment and Plan: BP normal to mild range on meds. Plan day: 2 Plan: other Comments: If labs WNL, will plan DC home today. Baby not DC due to weight loss. Time Spent With Patient Time: Total time spent is greater than 50% in coordination of care (as documented) at patient's floor/unit and/or counseling patient: Review of Systems Review of Systems: All systems reviewed & are unremarkable except as noted in HPI and below Exam Narrative: Alert and oriented. Mood is pleasant and cooperative. Perineum with minimal edema. Fundus firm and below umbilicus. Const: General: cooperative, healthy appearing, no acute distress and alert Orientation/consciousness: patient oriented x3 Limitations: no limitations Resp: Effort & Inspection: normal respiratory effort and able to speak in c omplete sentences Auscultation: clear to auscultation bilaterally Cardio: Rate: regular rate GI: Inspection: normal to inspection GI Palp: Yes Tenderness to palpation present (GI) (RUQ) Auscultation: normal bowel sounds : General: Yes bladder normal to palpation Bimanual exam- vagina & uterus: bladder normal to palpation OB/external & speculum: vaginal bleeding Other: Fundus firm and below U Skin: General skin exam: normal color and no rashes or lesions noted Neuro: General: patient oriented x3 and moves all extremities Cognition (Neuro): normal cognition Deep tendon reflexes (DTR's): Right brachioradialis reflex intensity grade: 1+, Left brachioradialis reflex intensity grade: 1+, Right patellar reflex intensity grade: 1+ and Left patellar reflex intensity grade: 1+ Extrem: General: normal to inspection and no calf tenderness Psych: Appearance: grossly normal Mental Status: mental status grossly normal Affect: normal affect Thought process: Normal thought process present
[2023-07-16 08:50] VITALS: BP 155/92; PULSE 58; RESP 18; TEMP 36.9; O2SAT 97
[2023-07-16 08:56] LABS: Hematocrit 32.6 % (37.0-47.0); Hemoglobin 10.2 g/dL (12.0-15.0); Mean Corpuscular HGB Conc 31.3 g/dl (32-36); Mean Corpuscular Hemoglobin 28.6 pg (26-34); Mean Corpuscular Volume 91.3 fl (80-100); Mean Platelet Volume 10.8 fl (7.4-10.4); Platelet Count Result 211 k/mm3 (150-375); Red Blood Count 3.57 M/mm3 (4.2-5.4); Red Cell Distribution Width 13.8 % (11.5-14.5); White Blood Count 11.1 K/mm3 (4.5-10.0)
[2023-07-16 09:06] LABS: Alanine Aminotransferase 46 U/L (6-35); Albumin Level 3.3 g/dL (3.5-5.1); Alkaline Phosphatase 100 U/L (38-126); Anion Gap 7 mmol/L (8-16); Aspartate Amino Transferase 51 U/L (14-36); Bilirubin,Total 0.4 mg/dL (0.2-1.3); Blood Urea Nitrogen 13 mg/dL (7-17); Calcium 8.7 mg/dL (8.4-10.2); Carbon Dioxide 27 mmol/L (22-30); Chloride 103 mmol/L (98-107); Estimated CRCL calculation 124 ml/min; Estimated Glomerular Filt Rate > 60; Glucose 81 mg/dL (65-110); Potassium 4.1 mmol/L (3.4-5.0); Sodium 137 mmol/L (137-145)
[2023-07-16] MEDS: POLYSACCHARIDE IRON COMPLEX 150 MG CAPSULE PO ×2 (09:31→16:35)
[2023-07-16] MEDS: MULTIVIT/MIN/PREN/FOL AC/IRON TABLET 1 TAB PO (09:31)
[2023-07-16 09:32] VITALS: PULSE 77
[2023-07-16] MEDS: LABETALOL HCL 100 MG TABLET PO ×2 (09:32→20:38)
--- NOTE | 2023-07-16 09:48 | PM.OBPNVD ---
OB - PN: Subj Subjective Date/time seen: 07/16/23 09:42 Interval history: OB - PN: Obj Data Labs 07/16/23 08:47 07/16/23 08:47 Labs: Laboratory Results - last 24 hr 07/16/23 08:47 WBC 11.1 H RBC 3.57 L Hgb 10.2 L Hct 32.6 L MCV 91.3 MCH 28.6 MCHC 31.3 L RDW 13.8 Plt Count 211 MPV 10.8 H Sodium 137 Potassium 4.1 Chloride 103 Carbon Dioxide 27 Anion Gap 7 L BUN 13 D Creatinine 0.50 L Estim Creat Clear Calc 124 Estimated GFR > 60 Glucose 81 Calcium 8.7 Total Bilirubin 0.4 AST 51 H ALT 46 H Alkaline Phosphatase 100 Total Protein 6.0 L Albumin 3.3 L OB - PN A/P Plan day: 2 Plan: routine care Comments: Discussed lab findings and CNM assessment with Dr. France. Plan to keep pt overnight for BP monitoring and repeat labs in the am. Time Spent With Patient Time: Total time spent is greater than 50% in coordination of care (as documented) at patient's floor/unit and/or counseling patient:
[2023-07-16] MEDS: IBUPROFEN 600 MG TABLET PO ×3 (10:57→23:03)
[2023-07-16 12:48] VITALS: BP 156/86; PULSE 72; RESP 18; TEMP 36.4; O2SAT 97
--- NOTE | 2023-07-16 13:04 | PCCCNOTE ---
Care Coordination. Pt. referred to CC for having positive UDS for alcohol once during first trimester. No UDS obtained here for mother or infant. Pt. reports she had a glass of wine. She denies daily or heavy substance use. She reports did discuss with her doctor at this time that she was having some depression. Pt. reports they waited to start medications to see how pt. did and she reports after first trimester, she started feeling better. We discussed getting setup with some counseling as well as watching for signs of post depression. Pt. given counseling and substance abuse (she denies this) information. Pt. reports interested in starting counseling, but reports wants to look through resources and setup herself instead of me helping her make appointment. RN reports pt. doing good with caring for baby. Pt. reports having all necessary baby care items. She plans to return home with FOB and their other child. No further SS needs indicated.
[2023-07-16 15:40] VITALS: BP 142/89; PULSE 70; RESP 16; TEMP 36.8; O2SAT 97
--- NOTE | 2023-07-16 15:47 | PC.NURSE ---
pt complaining of right upper quadrant pain, Rakesh Salcedo CNM, at the nurses station and notified of BP and pain. Orders received for blood work to be drawn and BP's q 4 hours while awake.
[2023-07-16] MEDS: DOCUSATE SODIUM 100 MG CAPSULE PO (16:35)
[2023-07-16 20:00] VITALS: BP 159/95; PULSE 63; RESP 18; TEMP 37.2; O2SAT 97
[2023-07-16 21:30] VITALS: BP 144/84
--- NOTE | 2023-07-16 22:07 | PC.NURSE ---
2000: pt denies any headache, dizziness, blurred vision, tingling, or any symptoms other than right upper quadrant pain. pt states she has right upper quadrant pain that has been continuous for two days. states it does not go away with any medicine. states she is passing bowels and does not feel it is gas pain. states it is worse when she is moving and trying to sleep. pt states her swelling in her legs and feet are significantly better than they have been.
[2023-07-17] VITALS: BP 156/99; PULSE 68
[2023-07-17 05:30] VITALS: BP 156/99; PULSE 68
[2023-07-17 06:07] LABS: Hematocrit 33.3 % (37.0-47.0); Hemoglobin 10.4 g/dL (12.0-15.0); Mean Corpuscular HGB Conc 31.2 g/dl (32-36); Mean Corpuscular Hemoglobin 28.3 pg (26-34); Mean Corpuscular Volume 90.7 fl (80-100); Mean Platelet Volume 11.5 fl (7.4-10.4); Platelet Count Result 223 k/mm3 (150-375); Red Blood Count 3.67 M/mm3 (4.2-5.4); Red Cell Distribution Width 13.6 % (11.5-14.5); White Blood Count 9.5 K/mm3 (4.5-10.0)
[2023-07-17 06:17] LABS: Alanine Aminotransferase 49 U/L (6-35); Albumin Level 3.2 g/dL (3.5-5.1); Alkaline Phosphatase 94 U/L (38-126); Anion Gap 6 mmol/L (8-16); Aspartate Amino Transferase 42 U/L (14-36); Bilirubin,Total 0.4 mg/dL (0.2-1.3); Blood Urea Nitrogen 18 mg/dL (7-17); Carbon Dioxide 27 mmol/L (22-30); Chloride 103 mmol/L (98-107); Estimated CRCL calculation 105 ml/min; Estimated Glomerular Filt Rate > 60; Glucose 90 mg/dL (65-110); Potassium 4.4 mmol/L (3.4-5.0); Sodium 136 mmol/L (137-145)
--- NOTE | 2023-07-17 08:24 | P.PNOB_ITS ---
OB - PN: Subj Subjective Date/time seen: 07/17/23 08:24 Interval history: Doing well overnight. Ambulating in room. Tolerating po fluids and food. Not passing any large clots. No MEJIA, visual changes, or change in edema. Still c/o RUQ pain. unchanged from yesterday. Patient comments: pain well controlled and tolerating diet baby status: bottle feeding well [place] feeding status: exclusively bottle feeding OB - PN: Obj Data Labs 07/17/23 05:23 07/17/23 05:23 Labs: Laboratory Results - last 24 hr 07/16/23 07/17/23 08:47 05:23 WBC 11.1 H 9.5 RBC 3.57 L 3.67 L Hgb 10.2 L 10.4 L Hct 32.6 L 33.3 L MCV 91.3 90.7 MCH 28.6 28.3 MCHC 31.3 L 31.2 L RDW 13.8 13.6 Plt Count 211 223 MPV 10.8 H 11.5 H Sodium 137 136 L Potassium 4.1 4.4 Chloride 103 103 Carbon Dioxide 27 27 Anion Gap 7 L 6 L BUN 13 D 18 H Creatinine 0.50 L 0.60 L Estim Creat Clear Calc 124 105 Estimated GFR > 60 > 60 Glucose 81 90 Calcium 8.7 9.0 Total Bilirubin 0.4 0.4 AST 51 H 42 H ALT 46 H 49 H Alkaline Phosphatase 100 94 Total Protein 6.0 L 6.0 L Albumin 3.3 L 3.2 L OB - PN A/P Plan day: 3 Comments: Plan to increase Labetalol to 200mg PO BID. CMP stable. BPs increased overnight. Spoke with Dr. France on telephone. Discussed entire pt situation and CNM findings including RUQ pain. If BPs respond to increase in labetalol, pt can be DC home. If any visual changes or MEJIA, will consider magnesium sulfate. Time Spent With Patient Time: Total time spent is greater than 50% in coordination of care (as documented) at patient's floor/unit and/or counseling patient: Review of Systems Review of Systems: All systems reviewed & are unremarkable except as noted in HPI and below Gastrointestinal: Comments: RUQ pain Exam Narrative: Alert and oriented. Mood is pleasant and cooperative. Perineum with minimal edema. Fundus firm and below umbilicus. Const: General: cooperative, healthy appearing, no acute distress and alert Orientation/consciousness: patient oriented x3 Limitations: no limitations Resp: Effort & Inspection: normal respiratory effort and able to speak in complete sentences Auscultation: clear to auscultation bilaterally Cardio: Rate: regular rate GI: Inspection: normal to inspection Auscultation: normal bowel sounds Other: RUQ pain. Tender to palpation. : General: Yes bladder normal to palpation External Female Exam: other (lochia WNL) Bimanual exam- vagina & uterus: bladder normal to palpation Other: Fundus firm and below U Skin: General skin exam: normal color and no rashes or lesions noted Neuro: General: patient oriented x3 and moves all extremities Cognition (Neuro): normal cognition Extrem: General: normal to inspection and no calf tenderness Psych: Appearance: grossly normal Mental Status: mental status grossly normal Affect: normal affect Thought process: Normal thought process present
[2023-07-17 09:05] VITALS: BP 145/99; PULSE 73; RESP 16; TEMP 37.2; O2SAT 97
[2023-07-17 09:18] VITALS: PULSE 85
[2023-07-17] MEDS: LABETALOL HCL 100 MG TABLET 200 MG PO (09:18)
[2023-07-17] MEDS: POLYSACCHARIDE IRON COMPLEX 150 MG CAPSULE PO (09:18)
[2023-07-17] MEDS: MULTIVIT/MIN/PREN/FOL AC/IRON TABLET 1 TAB PO (09:18)
[2023-07-17] MEDS: IBUPROFEN 600 MG TABLET PO (09:18)
[2023-07-17 11:10] VITALS: BP 139/84; PULSE 60
[2023-07-17 13:18] VITALS: BP 147/90; PULSE 59
--- NOTE | 2023-07-17 13:22 | PM.OBPNVD ---
OB - PN: Subj Subjective Date/time seen: 07/17/23 13:22 Interval history: . OB - PN: Obj Data Labs 07/17/23 05:23 07/17/23 05:23 Labs: Laboratory Results - last 24 hr 07/17/23 05:23 WBC 9.5 RBC 3.67 L Hgb 10.4 L Hct 33.3 L MCV 90.7 MCH 28.3 MCHC 31.2 L RDW 13.6 Plt Count 223 MPV 11.5 H Sodium 136 L Potassium 4.4 Chloride 103 Carbon Dioxide 27 Anion Gap 6 L BUN 18 H Creatinine 0.60 L Estim Creat Clear Calc 105 Estimated GFR > 60 Glucose 90 Calcium 9.0 Total Bilirubin 0.4 AST 42 H ALT 49 H Alkaline Phosphatase 94 Total Protein 6.0 L Albumin 3.2 L OB - PN A/P Plan Plan: discharge home Comments: BPs normal to mild range after Labetalol increase. Per Dr. France discussion. Pt stable for DC home. Will f/up tomorrow for BP check with outpatient RN. Time Spent With Patient Time: Total time spent is greater than 50% in coordination of care (as documented) at patient's floor/unit and/or counseling patient:
[2023-07-18 10:05] VITALS: BP 144/80; PULSE 78; RESP 18; TEMP 36.9; O2SAT 100
== END 2023-07-17 13:55 | disposition home or self-care (01) | DRG 807 ==
LOC: ANHLDR 07-14 01:18 → ANHOB2 07-14 03:31
PROVIDERS: Admitting Provider Obstetrics & Gynecology Gynecology; Referring Provider Advanced Practice Midwife; Visit Provider Obstetrics & Gynecology Gynecology
DX: O14.14 Severe pre-eclampsia complicating childbirth (principal); Z37.0 Single live birth; Z3A.36 36 weeks gestation of pregnancy; O60.14X0 Preterm labor third trimester with preterm delivery third trimester, not applicable or unspecified; O69.81X0 Labor and delivery complicated by cord around neck, without compression, not applicable or unspecified; O70.0 First degree perineal laceration during delivery
CPT/HCPCS: 36415; 80053; 84550; 85014; 85018; 85025; 85027; 86592; 86850; 86900; 86901; 88307; A9270; J0702; J2590; J2795; J7120

== ENCOUNTER 2024-06-08 11:05 | Outpatient (CLI) | payer OTHER, SELFPAY ==
--- NOTE | ~2024-06-08 | US_ITS ---
EXAMINATION: US OB <= 14 weeks fetus DATE: 06/08/2024 11:24 INDICATION: Spotting in first trimester. TECHNIQUE: Real-time transabdominal pelvic ultrasound was performed. COMPARISON: None. FINDINGS: The uterus measures 8.9 x 3.4 x 5.1 cm. The endometrial complex measures 11 mm in thickness. There is no visible intrauterine gestational sac. The right ovary measures 3.0 x 1.9 x 2.2 cm. The left ovary measures 2.8 x 1.6 x 1.9 cm. There is no free fluid in the pelvis. IMPRESSION: 1. No visible intrauterine gestational sac, which may be normal in early . Spontaneous abor tion and ectopic are not excluded. Serial beta-hCGs are recommended. Reviewed, dictated and finalized at location A. IMPRESSION: 1. No visible intrauterine gestational sac, which may be normal in early pregn german. Spontaneous and ectopic are not excluded. Serial beta- hCGs are recommended.
== END 2024-06-08 11:06 | disposition home or self-care (01) ==
LOC: MICIMG 11:06
PROVIDERS: PCP Advanced Practice Midwife; Visit Provider Advanced Practice Midwife
DX: O26.851 Spotting complicating pregnancy, first trimester (principal); O36.80X0 Pregnancy with inconclusive fetal viability, not applicable or unspecified; Z3A.00 Weeks of gestation of pregnancy not specified
CPT/HCPCS: 76801

== ENCOUNTER 2024-12-18 14:48 | Emergency (ER) | payer OTHER, SELFPAY ==
--- NOTE | 2024-12-18 14:49 | ED_ITS ---
HPI - Skin/Abscess/Foreign Bdy General Chief complaint: Skin/Abscess/Foreign Body Stated complaint: rash under L arm Time Seen by Provider: 12/18/24 14:49 Source: patient Mode of arrival: ambulatory Limitations: no limitations History of Present Illness HPI narrative: Patient is a 34 year old female with rash to left chest just medially from axilla and posterior left arm. Stated it started on her chest 2 days ago and each morning she wakes up with more bumps. States she does sleep on her left side with her arm tucked. States it is slightly itchy and feels numb. Denies any drainage, pain, burning, new soaps or detergents. Related Data Allergies Allergy/AdvReac Type Severity Reaction Status Date / Time No Known Allergies Allergy Verified 12/18/24 15:08 Review of Systems 2 Review of Systems: All systems reviewed & are unremarkable except as noted in HPI and below Constitutional: Constitutional: Denies body ache(s), Denies chills, Denies fatigue, Denies fever(s), Denies headache(s), Denies malaise and Denies weakness Eyes: Eyes: Denies blurry vision, Denies irritation and Denies loss of vision ENT: Denies otalgia, Denies headache(s), Denies nasal discharge, Denies sinus pain and Denies sore throat Cardiovascular: Cardiovascular: Denies chest pain, Denies irregular heart rhythm and Denies dyspnea Respiratory: Respiratory: Denies dyspnea Gastrointestinal: Gastrointestinal: Denies abdominal pain, Denies melena, Denies hematochezia, Denies diarrhea, Denies nausea and Denies vomiting Musculoskeletal: Musculoskeletal: Denies back pain, Denies myalgias and Denies arthralgias Integumentary/Breasts: Skin/Breast: Reports pruritus and Reports rash Neurologic: Denies headache(s), Denies loss of vision and Denies weakness Psychiatric: Psychiatric: Reports no additional psychiatric complaints Endocrine: Endocrine: Denies fatigue PMFSH Past Medical History Medical History Obese Anxiety Pre-eclampsia during in third trimester, antepartum Family History Family History Grandparent Cancer Brain tumor Other No pertinent family history Social History Social History Smoking status: Current some day smoker Tobacco type: cigarettes Second hand tobacco smoke exposure: Yes Substance use: never Lack of Transportation: No Lack of Food: Never True Current Housing: I Have Housing Concerned About Future Housing: No Difficulty Paying Gas/Electric Bills: No Difficulty Paying for Meds: No Currently Unemployed: No Education: Trade/Vocational Certificate Difficulty w/ Childcare or Family Care: No Spiritual care concerns: No Comments At time of signature, agree with nursing past medical, surgical, social and family history. There is no relevant family history pertinent to the presenting complaint. Exam 2 Const: General: cooperative, healthy appearing, comfortable, no acute distress and well nourished Nutritional Appearance: well nourished O rientation/consciousness: patient oriented x3 Limitations: no limitations HENMT: Head: normal to inspection, normocephalic and atraumatic Ears: h earing grossly normal bilaterally and external ears normal Face/Nose/Sinus: N ormal external nose present, normal facial exam and face symmetric Face and sinus: normal facial exam and face symmetric Mouth: Yes lip normal Eyes: General: appearance normal, both eyes and all related structures A lignment and Position: alignment normal and position normal Periorbital: p eriorbital findings normal Eyelids: eyelids normal Pupils: Equal, round and reactive pupils present EOM: EOMs intact bilaterally Neck: Neck: normal visual inspection, full ROM and supple Chest: Chest palpation & inspection: normal inspection of the chest Resp: Effort & Inspection: normal respiratory effort and able to speak in complete sentences Auscultation: clear to auscultation bilaterally Cardio: Rate: regular rate Rhythm: regular rhythm Heart sounds: S1 normal heart sound present and S2 normal heart sound present GI: Inspection: normal to inspection Skin: General skin exam: normal color Rashes: rashes noted papules left chest size (each papule 0.5 cm in size), arrangement clustered, borders sharp and irregular, color red and with an erythematous base and surface erythematous and warm; nontender, papules left posterior upper arm size (each papule 0.5 cm in size), arrangement clustered, borders sharp and irregular, color red and with an erythematous base and surface erythematous and warm; nontender Full body images: 1. group of 6 papules 2. group of 6 papules Neuro: General: patient oriented x3 and moves all extremities Cranial nerves: Yes Equal, round and reactive pupils present Speech: normal speech Gait exam (Neuro): Normal gait present Extrem: General: normal to inspection, full ROM and no edema Psych: Appearance: grossly normal and well kempt Mental Status: mental status grossly normal Speech and movement: Normal speech and movement present Affect: normal affect Attitude: cooperative Thought process: Normal thought process present Course Course Emergency Course: Patient is aware of diagnosis, understands and agrees to treatment plan. Anticipatory guidance given. Patient agrees to follow-up as directed and is aware of reasons to seek care at the emergency department. Portions of this record may have been created with voice recognition software Level of Care: Express Care Visit Vital Signs Vital signs: Vital Signs Temperature 36.4 C L 12/18/24 15:00 Pulse Rate 64 12/18/24 15:00 Respiratory Rate 20 12/18/24 15:00 Blood Pressure 142/90 H 12/18/24 15:00 Pulse Oximetry 99 12/18/24 15:00 Oxygen Delivery Room Air 12/18/24 15:00 Temperature 36.4 C L 12/18/24 15:00 Pulse Rate 64 12/18/24 15:00 Respiratory Rate 20 12/18/24 15:00 Blood Pressure 142/90 H 12/18/24 15:00 Pulse Oximetry 99 12/18/24 15:00 Oxygen Delivery Room Air 12/18/24 15:00 Reviewed MDM - Skin/Abscess/Foreign Bdy MDM Narrative Medical decision making narrative: Pt well hydrated appearing, in no respiratory distress, hemodynamically stable. Recommend supportive care. The patient is stable at time of discharge the clinical impression was discussed and the patient was given the opportunity to ask questions, which were addressed as completely as possible given the information available at present. Anticipatory guidance and return to care precautions were discussed and the importance of primary care follow-up was stressed and encouraged. The patient voiced understanding of the plan, indications to return, and the need for follow-up. Exam findings show no acute concerns or changes Patient is appropriate for outpatient treatment and follow-up. Differential Diagnosis Differential diagnosis: Likely abscess of skin or subcutaneous tissue, viral exanthem, urticaria, herpes zoster, allergic reaction to drug, cellulitis, insect bites and contact dermatitis Medical Records Attestation: I reviewed the patient's medical records. Discharge Plan Discharge Clinical Impression: Contact dermatitis Qualifiers: Contact dermatitis type: unspecified Contact dermatitis trigger: unspecified trigger Qualified Code(s): L25.9 - Unspecified contact dermatitis, unspecified cause Patient Disposition: Home Condition: Stable Instructions: Contact Dermatitis (ED) Additional Instructions: Take antibiotic as perscribed. The most important part of your care is follow up with Primary care provider. Avoid hot showers, Take cool showers. Wash the area with gentle soap and water only. Use steroid skin cream as prescribed to reduce itchiness Avoid scratching when possible to prevent worsening of the condition and disruption of the skin that could lead to bacterial infection To relieve itching, place a cool washcloth or some ice over the area that itches, rather than scratching Follow up with primary care provider or seek ER if you have trouble breathing, become hoarse, or start wheezing, develop belly cramps, vomiting or feel dizzy. Tevin blood pressure was elevated above 120/80 today at Urgent Care. This puts you above the threshold for follow up visit with a primary care provider. High blood pressure does not usually cause any symptoms, however it may lead to kidney failure, stroke, heart disease just to name a few if untreated . Many people are anxious when seeing a provider or nurse. As a result, you are not diagnosed with hypertension at this time unless your blood pressure is persistently high at two office visits at least one week apart. Some things that can help lower blood pressure are lifestyle modifications, such as light exercise, decreased salt in diet, and weight loss. It is important to follow up with a PCP about this within 1 week. Patient Language: Surinamese Prescriptions: New cephalexin 500 mg capsule 500 mg PO BID 7 Days Qty: 14 0RF No Action ibuprofen 600 mg tablet 600 mg PO Q6H PRN (Reason: pain) Qty: 30 0RF Follow-up/Referrals: Zachariah Ordonez MD [Primary Care Provider] - 3 Days Time of Disposition: 15:26
[2024-12-18 15:00] VITALS: BP 142/90; PULSE 64; RESP 20; TEMP 36.4; O2SAT 99
== END 2024-12-18 15:30 | disposition home or self-care (01) ==
PROVIDERS: Emergency Provider Nurse Practitioner Family; PCP Emergency Medicine
DX: L25.9 Unspecified contact dermatitis, unspecified cause (principal); F17.210 Nicotine dependence, cigarettes, uncomplicated; E66.9 Obesity, unspecified; Z68.27 Body mass index [BMI] 27.0-27.9, adult
CPT/HCPCS: 99213; G0463